=== PATIENT | female | born 1955 | race Caucasian/White ===

== ENCOUNTER 2020-02-18 10:42 | Outpatient (CLI) | payer OTHER ==
[2020-02-18 17:07] LABS: FREE T4 (FREE THYROXINE) 1.31 ng/dL (0.58-1.64)
== END 2020-02-18 10:43 | disposition home or self-care (01) ==
LOC: LAB.S 10:42
PROVIDERS: ATTEND Physician Assistant Medical
DX: E03.9 Hypothyroidism, unspecified (principal)
CPT/HCPCS: 36415; 84439; 84443

== ENCOUNTER 2020-04-10 10:43 | Outpatient (CLI) | payer OTHER ==
--- NOTE | 2020-04-10 14:25 | XRAY Report ---
PROCEDURE: Knee 4 View BILAT INDICATIONS: KNEE JOINT PAIN, RT TECHNIQUE: 4 views of each knee(s) were acquired. COMPARISON: None. FINDINGS: Bones: No acute fractures or dislocations. Status post right total knee arthroplasty without evidenc e for hardware complication. Tricompartmental degenerative changes of the left knee. No suspicious [place] lesions. Soft tissues: No joint effusion. No suspicious soft tissue calcifications. IMPRESSION: 1. Status post right total knee arthroplasty without evidence for hardware complication. 2. Tricompartmental osteoarthrosis of the left knee. Reviewed by: Sukhdev Jones MD on 04/10/2020 2:24 PM PST Approved by: Sukhdev Jones MD on 04/10/2020 2:24 PM PST Station ID: [id number]
== END 2020-04-10 23:59 | disposition home or self-care (01) ==
LOC: DI.N 10:43
PROVIDERS: ATTEND Orthopaedic Surgery
DX: M25.561 Pain in right knee (principal); Z96.651 Presence of right artificial knee joint; M17.12 Unilateral primary osteoarthritis, left knee

== ENCOUNTER 2020-11-05 07:08 | Outpatient (CLI) | payer OTHER ==
[2020-11-05 16:00] LABS: BASOPHILS # (AUTO) 0.1 10^3/uL (0.0-0.1); BASOPHILS % (AUTO) 1.2 %; EOSINOPHILS # (AUTO) 0.1 10^3/uL (0.0-0.7); EOSINOPHILS % (AUTO) 1.9 %; HCT - HEMATOCRIT 41.7 % (37.0-47.0); LYMPHOCYTES # (AUTO) 1.4 10^3/uL (1.5-3.5); LYMPHOCYTES % (AUTO) 24.3 %; MEAN CORPUSCULAR HEMOGLOBIN 29.3 pg (27.0-31.0); MEAN CORPUSCULAR HGB CONC 31.2 g/dL (32.0-36.0); MEAN CORPUSCULAR VOLUME 93.9 fL (81.0-99.0); MEAN PLATELET VOLUME 11.1 fL (7.9-10.8); MONOCYTES # (AUTO) 0.5 10^3/uL (0.0-1.0); MONOCYTES % (AUTO) 8.8 %; NEUTROPHILS # (AUTO) 3.8 10^3/uL (1.5-6.6); NEUTROPHILS % (AUTO) 63.6 %; PLT - PLATELET COUNT 243 10^3/uL (130-450); RED BLOOD COUNT 4.44 10^6/uL (4.20-5.40); RED CELL DISTRIBUTION WIDTH 13.2 % (12.0-15.0); WHITE BLOOD COUNT 5.9 x10^3/uL (4.8-10.8)
[2020-11-05 16:31] LABS: THYROID STIMULATING HORMONE 13.68 uIU/mL (0.34-5.60)
[2020-11-05 17:13] LABS: FREE T4 (FREE THYROXINE) 0.86 ng/dL (0.58-1.64)
[2020-11-05 20:01] LABS: ESTIMATED AVERAGE GLUCOSE 114 mg/dL (70-100); HEMOGLOBIN A1c% 5.6 % (4.27-6.07)
[2020-11-05 20:09] LABS: ALBUMIN 3.9 g/dL (3.2-5.5); ALBUMIN/GLOBULIN RATIO 1.4 (1.0-2.2); ALKALINE PHOSPHATASE 89 IU/L (42-121); ALT ALANINE AMINOTRANSFERASE 15 IU/L (10-60); AST ASPARTATE AMINOTRANSFERASE 17 IU/L (10-42); BILIRUBIN,TOTAL 0.8 mg/dL (0.2-1.0); BUN - BLOOD UREA NITROGEN 12 mg/dL (6-20); CALCIUM 9.5 mg/dL (8.5-10.3); CARBON DIOXIDE - CO2 28 mmol/L (21-32); CHLORIDE 107 mmol/L (101-111); CHOL/HDL RATIO 3.5 (<4.4); CHOLESTEROL 205 mg/dL; CREATININE 0.6 mg/dL (0.4-1.0); GFR - MDRD 101 (>89); GLUCOSE 112 mg/dL (70-100); HDL CHOLESTEROL 58 mg/dL; LDL CHOLESTEROL,CALCULATED 131 mg/dL; LDL/HDL RATIO 2.3 (<4.4); POTASSIUM 4.2 mmol/L (3.5-5.0); SODIUM 142 mmol/L (135-145); TOTAL PROTEIN 6.7 g/dL (6.7-8.2); TRIGLYCERIDES 82 mg/dL; VLDL CHOLESTEROL 16 mg/dL
== END 2020-11-05 07:09 | disposition home or self-care (01) ==
LOC: LAB.S 07:08
PROVIDERS: ATTEND Physician Assistant
DX: R73.01 Impaired fasting glucose (principal); E03.9 Hypothyroidism, unspecified; Z79.899 Other long term (current) drug therapy
CPT/HCPCS: 36415; 80053; 80061; 83036; 83721; 84439; 84443; 85025

== ENCOUNTER 2021-02-08 12:13 | Outpatient (CLI) | payer OTHER ==
[2021-02-08 18:45] LABS: THYROID STIMULATING HORMONE 0.11 uIU/mL (0.34-5.60)
[2021-02-08 19:19] LABS: FREE T4 (FREE THYROXINE) 1.23 ng/dL (0.58-1.64)
== END 2021-02-08 12:14 | disposition home or self-care (01) ==
LOC: LAB.S 12:13
PROVIDERS: ATTEND Physician Assistant
DX: E03.9 Hypothyroidism, unspecified (principal)
CPT/HCPCS: 36415; 84439; 84443

== ENCOUNTER 2021-02-25 15:33 | Outpatient (CLI) | payer OTHER ==
[2021-02-25 20:46] LABS: THYROID STIMULATING HORMONE 0.12 uIU/mL (0.34-5.60)
[2021-02-25 21:20] LABS: FREE T4 (FREE THYROXINE) 1.27 ng/dL (0.58-1.64)
[2021-03-03 04:32] LABS: THYROID PEROXIDASE ANTIBODIES 10 IU/mL (<9)
== END 2021-02-25 15:34 | disposition home or self-care (01) ==
LOC: LAB.S 15:33
PROVIDERS: ATTEND Internal Medicine
DX: E03.9 Hypothyroidism, unspecified (principal)
CPT/HCPCS: 36415; 84439; 84443; 86376; 86800

== ENCOUNTER 2021-03-25 13:30 | Outpatient (CLI) | payer OTHER | END 2021-03-25 23:59 | disposition home or self-care (01) | LOC: COV 13:30 | PROVIDERS: ATTEND Family Medicine | DX: M79.10 Myalgia, unspecified site (principal); R07.0 Pain in throat; Z20.822 Contact with and (suspected) exposure to COVID-19 ==

== ENCOUNTER 2021-04-11 09:27 | Outpatient (CLI) | payer OTHER ==
[2021-04-11 15:38] LABS: THYROID STIMULATING HORMONE 0.13 uIU/mL (0.34-5.60)
[2021-04-11 16:14] LABS: FREE T4 (FREE THYROXINE) 1.36 ng/dL (0.58-1.64)
== END 2021-04-11 09:28 | disposition home or self-care (01) ==
LOC: LAB.S 09:27
PROVIDERS: ATTEND Internal Medicine
DX: E03.9 Hypothyroidism, unspecified (principal)
CPT/HCPCS: 36415; 84439; 84443

== ENCOUNTER 2021-05-31 13:59 | Outpatient (CLI) | payer OTHER ==
--- NOTE | 2021-06-08 09:33 | Mammography Report ---
BILATERAL DIGITAL SCREENING MAMMOGRAM 3D/2D: 05/31/2021 CLINICAL: Routine screening. Family history of breast cancer. No prior exams were available for comparison. There are scattered fibroglandular elements in both br easts. No significant masses, calcifications, or other findings are seen in either breast. IMPRESSION: NEGATIVE There is no mammographic evidence of malignancy. A 1 year screening mammogram is recommended. This exam was interpreted at Station ID: [id number]. NOTE: For mammograms, a report in lay terms will be sent to the patient. Approximately 15% of breast malignancies will not be visualized mammographically. In the management of a palpable breast mass, a negative mammogram must not discourage biopsy of a clinically suspicious lesion. Electronically Signed By: Sukhdev worthington/laura:06/08/2021 08:52:59 ACR BI-RADS Category 1: Negative 3341F PARENCHYMAL PATTERN: (A) - The breast(s) demonstrate(s) scattered fibroglandular densities. BI-RADS CATEGORY: (1) - 1 RECOMMENDATION: (ANNUAL) - Recommend routine annual screening mammography. [id number] 1 year screening LATERALITY: (B)
== END 2021-05-31 14:00 | disposition home or self-care (01) ==
LOC: DI.S 13:59
PROVIDERS: ATTEND Internal Medicine
DX: Z12.31 Encounter for screening mammogram for malignant neoplasm of breast (principal); Z80.3 Family history of malignant neoplasm of breast

== ENCOUNTER 2021-05-31 14:02 | Outpatient (CLI) | payer OTHER ==
[2021-05-31 18:54] LABS: THYROID STIMULATING HORMONE 0.26 uIU/mL (0.34-5.60)
[2021-05-31 19:49] LABS: FREE T4 (FREE THYROXINE) 1.22 ng/dL (0.58-1.64)
== END 2021-05-31 14:03 | disposition home or self-care (01) ==
LOC: LAB.S 14:02
PROVIDERS: ATTEND Internal Medicine
DX: E03.9 Hypothyroidism, unspecified (principal)
CPT/HCPCS: 36415; 84439; 84443

== ENCOUNTER 2022-01-19 08:00 | Outpatient (CLI) | payer OTHER ==
--- NOTE | 2022-01-19 15:38 | XRAY Report ---
PROCEDURE: Knee 3 View LT INDICATIONS: LEFT KNEE PAIN TECHNIQUE: 3 views of the left knee(s) were acquired. COMPARISON: FINDINGS: Bones: No fractures or dislocations. Moderate tricompartmental osteoarthritis in left knee is seen most prominent in medial femoral tibial compartment. No suspicious bony lesions. Soft tissues: No joint effusion. No suspicious soft tissue calcifications. IMPRESSION: Moderate tricompartmental osteoarthritis. No fracture or dislocation. No significant emil nt effusion. Reviewed by: Harvinder Lee MD on 01/19/2022 3:36 PM PDT Approved by: Harvinder Lee MD on 01/19/2022 3:36 PM PDT Station ID: [id number]
== END 2022-01-19 23:59 | disposition home or self-care (01) ==
LOC: DI.WOS 08:00
PROVIDERS: ATTEND Physician Assistant Surgical
DX: M17.12 Unilateral primary osteoarthritis, left knee (principal)

== ENCOUNTER 2022-03-25 07:13 | Outpatient (CLI) | payer OTHER ==
[2022-03-25 15:20] LABS: T4 (THYROXINE) 9.2 ug/dL (6.09-12.23)
[2022-03-25 15:26] LABS: THYROID STIMULATING HORMONE 0.24 uIU/mL (0.34-5.60)
== END 2022-03-25 07:14 | disposition home or self-care (01) ==
LOC: LAB.S 07:13
PROVIDERS: ATTEND Registered Nurse
DX: E03.9 Hypothyroidism, unspecified (principal)
CPT/HCPCS: 36415; 84436; 84443; 84480

== ENCOUNTER 2022-05-21 09:10 | Outpatient (CLI) | payer OTHER ==
[2022-05-21 14:57] LABS: T4 (THYROXINE) 6.68 ug/dL (6.09-12.23)
[2022-05-21 15:01] LABS: THYROID STIMULATING HORMONE 1.55 uIU/mL (0.34-5.60)
== END 2022-05-21 09:11 | disposition home or self-care (01) ==
LOC: LAB.S 09:10
PROVIDERS: ATTEND Registered Nurse
DX: E03.9 Hypothyroidism, unspecified (principal)
CPT/HCPCS: 36415; 84436; 84443; 84480

== ENCOUNTER 2022-08-13 10:54 | Outpatient (CLI) | payer OTHER ==
[2022-08-13 15:01] LABS: T4 (THYROXINE) 6.16 ug/dL (6.09-12.23)
[2022-08-13 15:08] LABS: THYROID STIMULATING HORMONE 0.21 uIU/mL (0.34-5.60)
== END 2022-08-13 10:55 | disposition home or self-care (01) ==
LOC: LAB.S 10:54
PROVIDERS: ATTEND Registered Nurse
DX: E03.9 Hypothyroidism, unspecified (principal)
CPT/HCPCS: 36415; 84436; 84443; 84480

== ENCOUNTER 2022-09-23 07:00 | Outpatient (CLI) | payer MEDICARE, OTHER ==
--- NOTE | 2022-09-23 15:12 | XRAY Report ---
PROCEDURE: Hip w/Pelvis 1V RT INDICATIONS: RIGHT HIP PAIN TECHNIQUE: AP pelvis with lateral view(s) of the right hip(s). COMPARISON: None. FINDINGS: Bones: No fractures or dislocations. No suspicious bony lesions. Moderate to severe lateral degen erative hip joint space narrowing most severe on the right. Periarticular osteophytes are present. No erosions. Soft tissues: No suspicious soft tissue calcifications or masses. IMPRESSION: Arthritic changes within the hips bilaterally slightly more prominent on the right. Reviewed by: Yael Brenner MD on 09/23/2022 3:11 PM PDT Approved by: Yael Brenner MD on 09/23/2022 3:11 PM PDT Station ID: [id number]
== END 2022-09-23 23:59 | disposition home or self-care (01) ==
LOC: DI.S 07:00
PROVIDERS: ATTEND Physician Assistant
DX: M16.0 Bilateral primary osteoarthritis of hip (principal)

== ENCOUNTER 2022-09-28 08:27 | Outpatient (CLI) | payer MEDICARE, OTHER ==
[2022-09-28 15:54] LABS: CHOL/HDL RATIO 3.4 (<4.4); CHOLESTEROL 186 mg/dL; HDL CHOLESTEROL 55 mg/dL; LDL CHOLESTEROL,CALCULATED 123 mg/dL; LDL/HDL RATIO 2.2 (<4.4); TRIGLYCERIDES 41 mg/dL; VLDL CHOLESTEROL 8 mg/dL
[2022-09-28 15:56] LABS: T4 (THYROXINE) 5.07 ug/dL (6.09-12.23)
[2022-09-28 15:59] LABS: THYROID STIMULATING HORMONE 0.5 uIU/mL (0.34-5.60)
== END 2022-09-28 08:28 | disposition home or self-care (01) ==
LOC: LAB.S 08:27
PROVIDERS: ATTEND Registered Nurse
DX: E03.9 Hypothyroidism, unspecified (principal); Z13.220 Encounter for screening for lipoid disorders
CPT/HCPCS: 36415; 80061; 83721; 84436; 84443; 84480

== ENCOUNTER 2023-01-26 07:41 | Outpatient (CLI) | payer MEDICARE, OTHER ==
[2023-01-26 15:20] LABS: BASOPHILS # (AUTO) 0.1 10^3/uL (0.0-0.1); BASOPHILS % (AUTO) 1.1 %; EOSINOPHILS # (AUTO) 0.2 10^3/uL (0.0-0.7); EOSINOPHILS % (AUTO) 2.8 %; HCT - HEMATOCRIT 43.8 % (37.0-47.0); HGB - HEMOGLOBIN 13.5 g/dL (12.0-16.0); LYMPHOCYTES # (AUTO) 1.6 10^3/uL (1.5-3.5); LYMPHOCYTES % (AUTO) 25.9 %; MEAN CORPUSCULAR HEMOGLOBIN 29.2 pg (27.0-31.0); MEAN CORPUSCULAR HGB CONC 30.8 g/dL (32.0-36.0); MEAN CORPUSCULAR VOLUME 94.8 fL (81.0-99.0); MEAN PLATELET VOLUME 10.5 fL (7.9-10.8); MONOCYTES # (AUTO) 0.5 10^3/uL (0.0-1.0); MONOCYTES % (AUTO) 8.4 %; NEUTROPHILS # (AUTO) 3.8 10^3/uL (1.5-6.6); NEUTROPHILS % (AUTO) 61.6 %; PLT - PLATELET COUNT 235 10^3/uL (130-450); RED BLOOD COUNT 4.62 10^6/uL (4.20-5.40); RED CELL DISTRIBUTION WIDTH 13.2 % (12.0-15.0); WHITE BLOOD COUNT 6.1 x10^3/uL (4.8-10.8)
[2023-01-26 15:48] LABS: ALBUMIN 4.1 g/dL (3.2-5.5); ALBUMIN/GLOBULIN RATIO 1.8 (1.0-2.2); BILIRUBIN,TOTAL 0.5 mg/dL (0.2-1.0); CALCIUM 9.7 mg/dL (8.5-10.3); CREATININE 0.5 mg/dL (0.6-1.3); POTASSIUM 4.1 mmol/L (3.5-4.5); TOTAL PROTEIN 6.4 g/dL (6.4-8.9)
== END 2023-01-26 07:42 | disposition home or self-care (01) ==
LOC: LAB.S 07:41
PROVIDERS: ATTEND Registered Nurse
DX: Z79.899 Other long term (current) drug therapy (principal); I10 Essential (primary) hypertension
CPT/HCPCS: 36415; 80053; 85025

== ENCOUNTER 2023-03-11 10:11 | Outpatient (CLI) | payer MEDICARE, OTHER ==
[2023-03-11 14:58] LABS: THYROID STIMULATING HORMONE 1.61 uIU/mL (0.34-5.60)
[2023-03-12 19:07] LABS: THYROGLOBULIN ANTIBODY 13.5 IU/mL (0.0-0.9)
== END 2023-03-11 10:12 | disposition home or self-care (01) ==
LOC: LAB.S 10:11
PROVIDERS: ATTEND Registered Nurse
DX: E03.9 Hypothyroidism, unspecified (principal)
CPT/HCPCS: 36415; 84436; 84443; 84480; 86376; 86800

== ENCOUNTER 2023-04-12 08:00 | Outpatient (CLI) | payer MEDICARE, OTHER | END 2023-04-12 23:59 | disposition home or self-care (01) | LOC: LAB.S 08:00 | PROVIDERS: ATTEND Emergency Medicine | DX: R09.89 Other specified symptoms and signs involving the circulatory and respiratory systems (principal); Z20.822 Contact with and (suspected) exposure to COVID-19 ==

== ENCOUNTER 2023-06-02 08:39 | Outpatient (CLI) | payer MEDICARE, OTHER ==
[2023-06-02 15:25] LABS: CALCIUM 9.8 mg/dL (8.5-10.3); CREATININE 0.6 mg/dL (0.6-1.3); POTASSIUM 4.1 mmol/L (3.5-4.5)
[2023-06-02 15:31] LABS: THYROID STIMULATING HORMONE 0.19 uIU/mL (0.34-5.60)
[2023-06-02 20:21] LABS: ESTIMATED AVERAGE GLUCOSE 117 mg/dL (70-100); HEMOGLOBIN A1c% 5.7 % (4.27-6.07)
== END 2023-06-02 08:40 | disposition home or self-care (01) ==
LOC: LAB.S 08:39
PROVIDERS: ATTEND Registered Nurse
DX: R73.01 Impaired fasting glucose (principal); E03.9 Hypothyroidism, unspecified; Z86.39 Personal history of other endocrine, nutritional and metabolic disease
CPT/HCPCS: 36415; 80048; 82306; 83036; 84439; 84443; 84481

== ENCOUNTER 2023-07-05 08:27 | Outpatient (CLI) | payer MEDICARE, OTHER ==
[2023-07-05 16:11] LABS: THYROID STIMULATING HORMONE 0.18 uIU/mL (0.34-5.60)
== END 2023-07-05 08:28 | disposition home or self-care (01) ==
LOC: LAB.S 08:27
PROVIDERS: ATTEND Student in an Organized Health Care Education/Training Program
DX: E03.9 Hypothyroidism, unspecified (principal)
CPT/HCPCS: 36415; 84439; 84443; 84481